=== PATIENT | female | born 1970 | race Caucasian/White ===

== ENCOUNTER → 2019-07-08 15:27 | Outpatient (CLI) | payer OTHER, SELFPAY ==
--- NOTE | 2019-07-08 | DI.RAD.S_ITS ---
PROCEDURE: XR ANKLE RT MIN 3V INDICATIONS: right ankle foot pain TECHNIQUE: 3 views of the ankle were acquired. COMPARISON: None. FINDINGS: Bones: No fractures or dislocations. There is pes planus. Ankle mortise is normally aligned. No suspicious bony lesions. Soft tissues: No tibiotalar joint effusion. Achilles tendon appears normal. IMPRESSION: Pes planus, mild degenerative osteoarthritis, no acute trauma found. Dictated by: Elliot Wade M.D. on 07/08/2019 at 16:10 Approved by: Elliot Wade M.D. on 07/08/2019 at 16:11
== END ==
PROVIDERS: PCP Family Medicine; Visit Provider Family Medicine
DX: M25.571 Pain in right ankle and joints of right foot (principal); M21.41 Flat foot [pes planus] (acquired), right foot; M19.071 Primary osteoarthritis, right ankle and foot
CPT/HCPCS: 73610